=== PATIENT | female | born 1995 | race Caucasian/White ===

== ENCOUNTER 2017-12-18 13:20 | Emergency (ER) | payer OTHER ==
[2017-12-18] MEDS ORDERED: RANITIDINE 50 MG/2 ML VIAL IVP ONE (13:30)
[2017-12-18] MEDS ORDERED: methylPREDNISolone SOD SUCC 125 MG/2 ML VIAL IVP ONE (13:30)
[2017-12-18] MEDS ORDERED: NS 1,000 ML IV ONE (13:31)
--- NOTE | 2017-12-18 13:38 | EDPHY ---
HPI/HX/ROS/PE/MDM Narrative: CHIEF COMPLAINT: Allergic reaction, facial swelling HPI: The patient is a 22 y/o female with no known allergies complaining of acute onset facial swelling, pruritic rash, and nausea this afternoon while sitting in class. She first noticed nausea while sitting in class, then tingling in her hands and feet. She began to get itchy and noticed a rash on both hands so she arranged a ride to the ED. The canal driver noticed her face seemed swollen and over the last few minutes the patient describes her face " ballooning up." She ate standard food that she prepared for lunch today and cannot identify any new or abnormal ingestions or contacts today. She has never had these symptoms before and has no family history of allergies. She denies vomiting, abdominal pain, difficulty breathing, difficulty swallowing. She is normally healthy. REVIEW OF SYSTEMS: Aside from elements discussed in the HPI, a comprehensive 10-point review of systems was reviewed and is negative. PMH: Denies SOCIAL HISTORY: [employer] student. Lives in [place]. Single. PHYSICAL EXAM: General:Patient is alert, in distress. HR 130, SpO2 92%, BP 130/80. Face: Diffuse swelling. ENT:Eyes are normal to inspection. ENT inspection normal. Uvula midline. Neck: Normal inspection. Full range of motion. Respiratory:No respiratory distress. Breath sounds normal bilaterally. No stridor. Cardiovascular: Tachycardic regular rate and rhythm. Strong peripheral pulses. Normal cap refill. Abdomen:The abdomen is nontender to palpation. There are no peritoneal signs. Back: Normal to inspection. No tenderness to palpation. Skin: Normal color. Warm and dry. Diffuse urticarial rash involving trunk and all extremities. Extremities: Normal appearance. Full range of motion. Neuro: Oriented x3. Normal motor function. Normal sensory function. (Yunior Ledesma) ED Course: This is a healthy 22 y/o female who presents with an acute allergic reaction to an unknown antigen. She has a diffusely swollen face with pruritic and urticarial rash involving her trunk and all extremities. Airway is clear. Plan for rapid intervention with IV and anaphylaxis medications. 0.3mg IM epinephrine , 125mg IV Solumedrol, 50mg IV Benadryl, 50mg IV Ranitidine, and 1L IV NS administered. Basic labs ordered. 1410: Reassessed patient. Her rash has improved significantly. She continues to have facial swelling. Will continue serial reassessments to monitor for sustained improvement and rebound reaction. (Yunior Ledesma) MDM: I saw the patient at 3:15 a.m. After having a patient signed out to me by Dr. Ledesma at 3:00 p.m.. Patient is stable. She tells me she is still slightly shaky from medication. The patient, her mom, and I reviewed her laboratory testing. Patient is alert and speaking normally in full sentences. No wheezing or stridor is present. Exam shows patient's face to be slightly puffy still but otherwise no rash or respiratory difficulty Re-evaluation again at 3:55 p.m.. Patient is stable. The patient, her mom and I discussed treatment plan including criteria for return and importance of follow-up and further evaluation. They expressed understanding (Nehemiah Linn) - Data Points Laboratory Results: Laboratory Results 12/18/17 13:40 12/18/17 13:40 12/18/17 12/18/17 12/18/17 13:40 13:40 13:40 WBC 6.74 10^3/uL 10^3/uL (3.80-9.50) RBC 4.94 10^6/uL 10^6/uL (4.18-5.33) Hgb 14.4 g/dL g/dL (12.6-16.3) Hct 42.3 % % (38.0-47.0) MCV 85.6 fL fL (81.5-99.8) MCH 29.1 pg pg (27.9-34.1) MCHC 34.0 g/dL g/dL (32.4-36.7) RDW 12.6 % % (11.5-15.2) Plt Count 322 10^3/uL 10^3/uL (150-400) MPV 10.1 fL fL (8.7-11.7) Neut % (Auto) 58.0 % % (39.3-74.2) Lymph % (Auto) 33.1 % % (15.0-45.0) [place] % (Auto) 7.6 % % (4.5-13.0) Eos % (Auto) 0.9 % % (0.6-7.6) Baso % (Auto) 0.3 % % (0.3-1.7) Nucleat RBC Rel Count 0.0 % % (0.0-0.2) Absolute Neuts (auto) 3.91 10^3/uL 10^3/uL (1.70-6.50) Absolute Lymphs (auto) 2.23 10^3/uL 10^3/uL (1.00-3.00) Absolute Monos (auto) 0.51 10^3/uL 10^3/uL (0.30-0.80) Absolute Eos (auto) 0.06 10^3/uL 10^3/uL (0.03-0.40) Absolute Basos (auto) 0.02 10^3/uL 10^3/uL (0.02-0.10) Absolute Nucleated RBC 0.00 10^3/uL 10^3/uL (0-0.01) Immature Gran % 0.1 % % (0.0-1.1) Immature Gran # 0.01 10^3/uL 10^3/uL (0.00-0.10) Sodium 137 mEq/L mEq/L (135-145) Potassium 4.3 mEq/L mEq/L (3.5-5.2) Chloride 98 mEq/L mEq/L (97-110) Carbon Dioxide 19 mEq/l L mEq/l (22-31) Anion Gap 20 mEq/L H mEq/L (8-16) BUN 11 mg/dL mg/dL (7-23) Creatinine 0.8 mg/dL mg/dL (0.6-1.0) Estimated GFR > 60 Glucose 92 mg/dL mg/dL (70-100) Calcium 9.8 mg/dL mg/dL (8.5-10.4) Beta HCG, Qual NEGATIVE Medications Given: Discontinued Medications Diphenhydramine HCl (Benadryl Injection) 50 mg IVP EDNOW ONE Stop: 12/18/17 13:31 Last Admin: 12/18/17 13:35 Dose: 50 mg Epinephrine HCl (Epinephrine) 0.3 mg IM EDNOW ONE Stop: 12/18/17 13:31 Last Admin: 12/18/17 13:30 Dose: 0.3 mg Sodium Chloride (Ns) 1,000 mls @ 0 mls/hr IV EDNOW ONE; Wide Open PRN Reason: Protocol Stop: 12/18/17 13:32 Last Admin: 12/18/17 13:39 Dose: 1,000 mls Methylprednisolone Sodium Succinate (Solu-Medrol) 125 mg IVP EDNOW ONE Stop: 12/18/17 13:31 Last Admin: 12/18/17 13:36 Dose: 125 mg Ranitidine HCl (Zantac) 50 mg IVP EDNOW ONE Stop: 12/18/17 13:31 Last Admin: 12/18/17 13:38 Dose: 50 mg General Time Seen by Provider: 12/18/17 13:25 Initial Vital Signs: Initial Vital Signs Temperature (C) 36.7 C 12/18/17 13:26 Heart Rate 128 H 12/18/17 13:26 Respiratory Rate 18 12/18/17 13:26 Blood Pressure 133/80 H 12/18/17 13:26 O2 Sat (%) 92 12/18/17 13:26 O2 Delivery Mode Room Air Allergies/Adverse Reactions: No Known Allergies Allergy (Unverified 12/18/17 13:40) Home Medications: Medication Instructions Recorded EPINEPHrine [Epipen 0.3 MG] 0.3 mg IM ONCE #2 syr 12/18/17 predniSONE 60 mg PO DAILY #9 tab 12/18/17 Departure - Departure Disposition: Home, Routine, Self-Care Clinical Impression: Urticaria, Facial swelling Allergic reaction Qualifiers: Encounter type: initial encounter Qualified Code(s): T78.40XA - Allergy, unspecified, initial encounter Condition: Good Instructions: Prednisone (By mouth), Epinephrine (By injection), General Allergic Reaction (ED) Additional Instructions: Follow-up with your primary doctor within 72 hours. Use [id number] Benadryl as directed for itching. Return to the Emergency Department for shortness of breath, difficulty swallowing, difficulty breathing, worsening of rash, fever or other worsening of condition. When symptoms have completely subsided, follow up with an scarf gluer soon as possible to determine the cause of the allergic reaction. Use EpiPen in case of allergic emergency. Referrals: Lorin Lopez MD [Medical Doctor] - As per Instructions Prescriptions: EPINEPHrine [Epipen 0.3 MG] 0.3 mg IM ONCE #2 syr predniSONE 60 mg PO DAILY #9 tab Report Scribed for: Yunior Ledesma Report Scribed by: Brit Jerez Date of Report: 12/18/17 Time of Report: 13:39 Physician Review and Approval Statement: Portions of this note were transcribed by an ED scribe. I personally performed the history, physical exam, and medical decision making; and confirm the accuracy of the information in the transcribed note.
[2017-12-18 13:49] LABS: PLATELET COUNT 322 10^3/uL (150-400)
[2017-12-18 16:18] VITALS: BP 107/61
[2017-12-18] MEDS ORDERED: RANITIDINE 50 MG/2 ML VIAL ONE (16:34)
[2017-12-18] MEDS ORDERED: methylPREDNISolone SOD SUCC 125 MG/2 ML VIAL ONE (16:34)
== END 2017-12-18 16:15 | disposition home or self-care (01) ==
DX: L50.0 Allergic urticaria (principal); E86.9 Volume depletion, unspecified
CPT/HCPCS: 96374; J0171; J1200; J2780; J2930